=== PATIENT | male | born 1980 | race Caucasian/White ===

== ENCOUNTER 2018-04-07 00:24 | Emergency (ER) | payer MEDICAID ==
[~2018-04-07] VITALS: Ht 175.3 cm; Wt 104.3 kg
[2018-04-07 00:31] VITALS: BP 148/91
--- NOTE | 2018-04-07 00:33 | NUR ---
PT AMBULATED TO BED 9
--- NOTE | 2018-04-07 00:37 | NUR ---
PT AMBULATED TO BED 11
--- NOTE | 2018-04-07 00:40 | NUR ---
PT BIB FRIEND C/O ANXIETY. V/S STABLE. DENIES PAIN; N/V/D AT THIS TIME. PMH: DENIES
--- NOTE | 2018-04-07 01:29 | NUR ---
Patient discharged with v/s stable. Written and verbal after care instructions given and explained. Patient alert, oriented and verbalized understanding of instructions. Ambulatory with steady gait. All questions addressed prior to discharge. ID band removed. Patient advised to follow up with PMD. Rx of ATARAX, PRILOSEC given. Patient educated on indication of medication including possible reaction and side effects. Opportunity to ask questions provided and answered.
[2018-04-07 01:30] VITALS: BP 132/72
== END 2018-04-07 01:29 | disposition home or self-care (01) ==
LOC: MED 00:24
DX: F41.9 Anxiety disorder, unspecified (principal); K21.9 Gastro-esophageal reflux disease without esophagitis; F17.210 Nicotine dependence, cigarettes, uncomplicated
CPT/HCPCS: 99284